=== PATIENT | male | born 1950 | race African-American/Black ===

== ENCOUNTER 2017-12-30 12:40 | Emergency (ER) | payer MEDICARE ==
[2017-12-30 12:57] VITALS: BP 128/86
--- NOTE | 2018-02-02 21:21 | UC ---
FLU HPI - HPI Summary HPI Summary: Son has influenza, awoke this morning with cough, congestion body aches and sore throat - History of Current Complaint Chief Complaint: UCRespiratory Stated Complaint: SORE THROAT HEADACHE CONGESTION Time Seen by Provider: 12/30/17 13:03 Hx Obtained From: Patient Onset/Duration: Sudden Onset Severity Currently: Moderate Severity Initially: Moderate Pain Intensity: 0 Associated Signs & Symptoms: Positive: Myalgia, Cough, Sore Throat, Nasal Congestion, Headache Related Hx: Possible Flu/Infectious Exposure - Allergy/Home Medications Allergies/Adverse Reactions: Allergies Allergy/AdvReac Type Severity Reaction Status Date / Time morphine Allergy Insomnia Verified 12/30/17 12:58 PMH/Surg Hx/FS Hx/Imm Hx Previously Healthy: No Endocrine History: Diabetes, Dyslipidemia - Surgical History Surgical History: Yes Surgery Procedure, Year, and Place: 1988 SKIN GRAFT FROM RIGHT THIGH TO RIGHT ARM FROM PONCE, [facility] – [place]. 2005 BONE SPURS REMOVED RIGHT DISTAL CLAVICLE. 2008 LEFT ROTATOR CUFF REPAIRED and bone spurs [facility] [place]. 2016 ANTERIOR CERVICAL CORPECTOMY AND. FUSION WITH INSTRUMENTATION AND C5 - Family History Known Family History: Positive: Cardiac Disease - FATHER - [place], Diabetes - GRANDMOTHER - Social History Occupation: Works From/At Home Lives: With Family Alcohol Use: Occasionally Substance Use Type: None Smoking Status (MU): Former Smoker Type: Cigarettes Length of Time of Smoking/Using Tobacco: 8 YEARS Have You Smoked in the Last Year: No When Did the Patient Quit Smoking/Using Tobacco: 2002 Household Exposure Type: Cigarettes - Immunization History Most Recent Influenza Vaccination: 09/01 Most Recent Tetanus Shot: unk Most Recent Pneumonia Vaccination: 09/01 Review of Systems Constitutional: Chills, Fatigue Skin: Negative Eyes: Negative ENT: Sore Throat Respiratory: Cough Cardiovascular: Negative Gastrointestinal: Negative Genitourinary: Negative Motor: Negative Neurovascular: Negative Musculoskeletal: Arthralgia, Myalgia Neurological: Headache Psychological: Negative Is Patient Immunocompromised?: No All Other Systems Reviewed And Are Negative: Yes Physical Exam Triage Information Reviewed: Yes Appearance: No Pain Distress, Well-Nourished, Ill-Appearing Vital Signs: Initial Vital Signs Temp 98.6 F 12/30/17 12:55 Pulse 100 12/30/17 12:55 Resp 18 12/30/17 12:55 BP 128/86 12/30/17 12:55 Pulse Ox 100 12/30/17 12:55 Vital Signs Reviewed: Yes Eye Exam: Normal Eyes: Positive: Conjunctiva Clear ENT Exam: Normal ENT: Positive: Normal ENT inspection, Hearing grossly normal, Pharynx normal, Nasal congestion, TMs normal, Uvula midline. Negative: Trismus, Muffled voice, Hoarse voice, Dental tenderness, Sinus tenderness Dental Exam: Normal Neck exam: Normal Neck: Positive: Supple, Nontender Respiratory Exam: Normal Respiratory: Positive: Chest non-tender, Lungs clear, Normal breath sounds, No respiratory distress, No accessory muscle use Cardiovascular Exam: Normal Cardiovascular: Positive: RRR, No Murmur, Pulses Normal, Brisk Capillary Refill Musculoskeletal Exam: Normal Musculoskeletal: Positive: Strength Intact, ROM Intact, No Edema Neurological Exam: Normal Neurological: Positive: Alert, Muscle Tone Normal Psychological Exam: Normal Skin Exam: Normal Diagnostics - Laboratory Diagnostic Studies Completed/Ordered: influenza A/B (-) Flu Course/Dx - Course Course Of Treatment: will treat based on symptoms, age and co-morbities, tamiflu , increase fluids, tylenol, ibuprofen follow with pcp - Differential Dx/Diagnosis Provider Diagnoses: Viral illness, influenza exposure Discharge - Sign-Out/Discharge Documenting (check all that apply): Discharge/Admit/Transfer - Discharge Plan Condition: Stable Disposition: HOME Prescriptions: Oseltamivir CAP* [Tamiflu CAP*] 75 mg PO BID #[id number] Patient Education Materials: Influenza (ED) Referrals: Mirella Farrell MD [Primary Care Provider] - If Needed - Billing Disposition and Condition Condition: STABLE Disposition: HOME
== END 2017-12-30 13:28 | disposition home or self-care (01) ==
LOC: UCEAST 12:40
DX: B34.9 Viral infection, unspecified (principal); Z20.828 Contact with and (suspected) exposure to other viral communicable diseases; E11.9 Type 2 diabetes mellitus without complications; Z79.84 Long term (current) use of oral hypoglycemic drugs; Z88.5 Allergy status to narcotic agent; E78.5 Hyperlipidemia, unspecified; Z87.891 Personal history of nicotine dependence
CPT/HCPCS: 87502; 99212; G0463